=== PATIENT | male | born 1985 | race Caucasian/White ===

== ENCOUNTER 2017-05-04 13:37 | Emergency (ER) | END 2017-05-04 18:42 | disposition home or self-care (01) ==

== ENCOUNTER 2018-09-01 08:05 | Emergency (ER) | payer BC, MEDICAID ==
[~2018-09-01] VITALS: Wt 68.2 kg
[~2018-09-01 08:05] MED LIST: AMOX500C2 PO; IBUP800T48 PO
[2018-09-01 08:08] VITALS: BP 123/77; PULSE 79; RESP 20
[2018-09-01] MEDS ORDERED: CEPH-443 PO (08:42)
[2018-09-01] MEDS ORDERED: SULF1TAB31 PO (08:42)
[2018-09-01] MEDS ORDERED: IBUP800T48 PO (08:42)
--- NOTE | 2018-09-01 10:09 | ERD ---
ER Documentation Chief Complaint Chief Complaint "bumps" under marlene axilla area HPI 33-year-old male presenting with bumps under bilateral axilla. Patient has had symptoms for the last week. No drainage. Mild pain. Has never had this before. Has not taken medications for symptoms. Denies medical problems. NKDA . Surgical history denies social history denies. Drug use denies ROS All systems reviewed and are negative except as per history of present illness. Medications Home Meds Active Scripts Ibuprofen* (Motrin*) 800 Mg Tab, 800 MG PO Q6, #30 TAB Prov:NIESHA VIVEROS PA-C 09/01/18 Cephalexin* (Keflex*) 500 Mg Capsule, 500 MG PO QID for 7 Days, CAP Prov:NIESHA VIVEROS PA-C 09/01/18 Sulfamethoxazole/Trimethoprim* (Bactrim Ds* Tablet) 1 Each Tablet, 1 TAB PO BID, #14 TAB Prov:NIESHA VIVEROS PA-C 09/01/18 Ibuprofen* (Motrin*) 800 Mg Tab, 800 MG PO Q6H PRN for PAIN AND OR ELEVATED TEMP, #30 TAB Prov:LIZY POLK MD 05/04/17 Amoxicillin* (Amoxicillin*) 500 Mg Cap, 500 MG PO TID for 7 Days, CAP Prov:LIZY POLK MD 05/04/17 Allergies Allergies: Coded Allergies: No Known Allergy (Unverified , 05/04/17) PMhx/Soc History of Surgery: No Hx Neurological Disorder: No Hx Respiratory Disorders: No Hx Cardiac Disorders: No Hx Psychiatric Problems: No Hx Miscellaneous Medical Probl: No Hx Alcohol Use: No Hx Substance Use: No Hx Tobacco Use: No Smoking Status: Never smoker FmHx Family History: No diabetes, No coronary disease, No other Physical Exam Vitals Vital Signs Date Temp Pulse Resp B/P (MAP) Pulse Ox O2 O2 Flow FiO2 Time Delivery Rate 09/01/18 98.4 79 20 123/77 98 08:08 (92) Physical Exam GENERAL: The patient is well-appearing, well-nourished, in no acute distress CHEST: Clear to auscultation bilaterally. There are no rales, wheezes or rhonchi. HEART: Regular rate and rhythm. No murmurs, clicks, rubs or gallops. EXTREMITIES: Equal pulses bilaterally. There is no peripheral clubbing, cyanosis or edema. No focal swelling or erythema. Full range of motion. Grossly neurovascularly intact. SKIN: Bumps number right axilla with no fluctuance. Bumps are only in the hair follicle regions. No pustules. Procedures/MDM MDM: 33-year-old male presenting with bumps to axilla. Patient looks to have a small folliculitis changes. A low suspicion for enlarged lymph nodes I do not feel there is indication for incision and drainage at this time. No need for blood work or imaging. Patient is discharged with strict ER precautions and told to follow-up with primary care within 1 to 2 days for close evaluation. Patient is told symptoms change or worsen to return immediately to the ER. All questions answered at discharge Departure Diagnosis: Primary Impression: Folliculitis Condition: Stable Patient Instructions: Folliculitis Referrals: [facility] YOU HAVE RECEIVED A MEDICAL SCREENING EXAM AND THE RESULTS INDICATE THAT YOU DO NOT HAVE A CONDITION THAT REQUIRES URGENT TREATMENT IN THE EMERGENCY DEPARTMENT. FURTHER EVALUATION AND TREATMENT OF YOUR CONDITION CAN WAIT UNTIL YOU ARE SEEN IN YOUR DOCTORS OFFICE WITHIN THE NEXT 1-2 DAYS. IT IS YOUR RESPONSIBILITY TO MAKE AN APPOINTMENT FOR FOLOW-UP CARE. IF YOU HAVE A PRIMARY DOCTOR --you should call your primary doctor and schedule an appointment IF YOU DO NOT HAVE A PRIMARY DOCTOR YOU CAN CALL OUR PHYSICIAN REFERRAL HOTLINE AT IF YOU CAN NOT AFFORD TO SEE A PHYSICIAN YOU CAN CHOSE FROM THE FOLLOWING [facility] [address] [address] [facility] [address] [facility] [address] [facility] [facility] [address] [facility] [address] [facility]. [facility]. [address] Additional Instructions: FOLLOW UP WITH YOUR PRIMARY CARE PHYSICIAN TOMORROW.Return to this facility if you are not improving as expected. NIESHA VIVEROS PA-C Sep 01, 2018 10:09
== END 2018-09-01 09:05 | disposition home or self-care (01) ==
LOC: FTE 08:05
DX: L73.9 Follicular disorder, unspecified (principal)
CPT/HCPCS: 99283

== ENCOUNTER 2018-09-14 06:05 | Emergency (ER) | payer BC ==
[~2018-09-14] VITALS: Ht 167.6 cm; Wt 58.6 kg
[~2018-09-14 06:05] MED LIST changes: +CEPH-443 PO; +CLIN300C10 PO; +MUPI22OI2 TOP; +SULF1TAB31 PO
[2018-09-14 06:17] VITALS: BP 126/60; PULSE 87; RESP 20; Ht 167.6 cm; Wt 58.6 kg
--- NOTE | 2018-09-14 10:30 | ERD ---
ER Documentation Chief Complaint Chief Complaint RIGHT AXILIA BUMPS HPI 33-year-old male presenting with bumps to lateral axilla. Patient was given Bactrim and Keflex 2 weeks ago which alleviated his symptoms however since stopping the medication they have returned. He has no fevers. Has no other medical problems. No use of new deodorant. Denies any medical problems. NKDA. Surgical history denies. Social history denies. Patient does take Truvada. ROS All systems reviewed and are negative except as per history of present illness. Medications Home Meds Active Scripts Mupirocin* (Bactroban*) 2% -22 Gram Oint...g., 1 APPLIC TOP BID for 7 Days, EA Prov:NIESHA VIVEROS PA-C 09/14/18 Clindamycin Hcl* (Clindamycin Hcl*) 300 Mg Capsule, 300 MG PO TID for 7 Days, CAP Prov:NIESHA VIVEROS PA-C 09/14/18 Ibuprofen* (Motrin*) 800 Mg Tab, 800 MG PO Q6, #30 TAB Prov:NIESHA VIVEROS PA-C 09/01/18 Cephalexin* (Keflex*) 500 Mg Capsule, 500 MG PO QID for 7 Days, CAP Prov:NIESHA VIVEROS PA-C 09/01/18 Sulfamethoxazole/Trimethoprim* (Bactrim Ds* Tablet) 1 Each Tablet, 1 TAB PO BID, #14 TAB Prov:NIESHA VIVEROS PA-C 09/01/18 Ibuprofen* (Motrin*) 800 Mg Tab, 800 MG PO Q6H PRN for PAIN AND OR ELEVATED TEMP, #30 TAB Prov:LIZY POLK MD 05/04/17 Amoxicillin* (Amoxicillin*) 500 Mg Cap, 500 MG PO TID for 7 Days, CAP Prov:LIZY POLK MD 05/04/17 Allergies Allergies: Coded Allergies: No Known Allergy (Unverified , 05/04/17) PMhx/Soc History of Surgery: No Anesthesia Reaction: No Hx Neurological Disorder: No Hx Respiratory Disorders: No Hx Cardiac Disorders: No Hx Psychiatric Problems: No Hx Miscellaneous Medical Probl: No Hx Alcohol Use: No Hx Substance Use: No Hx Tobacco Use: No Smoking Status: Never smoker FmHx Family History: No diabetes, No coronary disease, No other Physical Exam Vitals Vital Signs Date Temp Pulse Resp B/P (MAP) Pulse Ox O2 O2 Flow FiO2 Time Delivery Rate 09/14/18 97.0 87 20 126/60 99 06:17 (82) Physical Exam GENERAL: The patient is well-appearing, well-nourished, in no acute distress CHEST: Clear to auscultation bilaterally. There are no rales, wheezes or rhonchi. HEART: Regular rate and rhythm. No murmurs, clicks, rubs or gallops EXTREMITIES: Equal pulses bilaterally. There is no peripheral clubbing, cyanosis or edema. No focal swelling or erythema. Full range of motion. Grossly neurovascularly intact. NEUROLOGIC: Alert and oriented. Cranial nerves II through XII intact. Motor strength in all 4 extremities with 5 out of [address] strength. Sensation grossly inta ct. SKIN: Small pinpoint erythematous nodules noted to bilateral axilla with no pustules. Procedures/MDM MDM: 33-year-old male presenting with bumps to bilateral axilla. Patient likely has hidradenitis supralativa. Patient will be trialed on additional antibiotic course however have low suspicion at this time. Patient is discharged with supportive medications. Patient is told symptoms change or worsen to return immediately to the ER. All questions answered at discharge Departure Diagnosis: Primary Impression: Folliculitis Condition: Stable Patient Instructions: Folliculitis Referrals: [facility] YOU HAVE RECEIVED A MEDICAL SCREENING EXAM AND THE RESULTS INDICATE THAT YOU DO NOT HAVE A CONDITION THAT REQUIRES URGENT TREATMENT IN THE EMERGENCY DEPARTMENT. FURTHER EVALUATION AND TREATMENT OF YOUR CONDITION CAN WAIT UNTIL YOU ARE SEEN IN YOUR DOCTORS OFFICE WITHIN THE NEXT 1-2 DAYS. IT IS YOUR RESPONSIBILITY TO MAKE AN APPOINTMENT FOR FOLOW-UP CARE. IF YOU HAVE A PRIMARY DOCTOR --you should call your primary doctor and schedule an appointment IF YOU DO NOT HAVE A PRIMARY DOCTOR YOU CAN CALL OUR PHYSICIAN REFERRAL HOTLINE AT IF YOU CAN NOT AFFORD TO SEE A PHYSICIAN YOU CAN CHOSE FROM THE FOLLOWING [facility] [address] [facility]. [facility] [address] [facility]. [facility] [address] [facility] [address] [facility] [address] [facility]. [facility] [address] Additional Instructions: FOLLOW UP WITH YOUR PRIMARY CARE PHYSICIAN TOMORROW.Return to this facility if you are not improving as expected. PURCHASE HIBICLENS OVER THE COUNTER AND USE BODY WASH 2X A WEEK NIESHA VIVEROS PA-C Sep 14, 2018 10:30
== END 2018-09-14 06:45 | disposition home or self-care (01) ==
LOC: FTE 06:05
DX: L73.9 Follicular disorder, unspecified (principal)
CPT/HCPCS: 99283